=== PATIENT | male | born 1970 | race Caucasian/White ===

== ENCOUNTER 2017-07-04 16:29 | Inpatient (IN) | payer SELFPAY ==
[~2017-07-04] VITALS: Ht 180.3 cm; Wt 86.7 kg
[2017-07-04 16:34] VITALS: BP 172/97; PULSE 73; RESP 14; TEMP 97.7; O2SAT 98
[2017-07-04] MEDS ORDERED: SODIUM CHLORIDE 0.9% FLUSH 10 ML FLUSH IVF PRN (18:30)
--- NOTE | 2017-07-04 18:32 | PD ---
HPI Chief Complaint: Syncope/Near-Syncope Time Seen by Provider: 18:17 Travel History International Travel<30 days: No Contact w/Intl Traveler<30days: No Traveled to known affect area: No History of Present Illness HPI 46-year-old male here for evaluation of a near syncopal episode. The patient reports that he works as a log truck driver, and today while driving his truck he began to have visual changes and felt as though he may pass out. He reports that his vision appeared as though he was looking through prisms. This lasted for about 45 minutes and occurred at around 3:15 PM today. Patient states that the symptoms have improved, however he still feels lightheaded and is complaining of a right-sided headache. He also reports that about 3 weeks ago he began to experience a discomfort in his chest which improved, however has returned several times for the last 3 weeks. He has it today and it is mild. He has no known history of cardiac disease. There is family history of cardiac disease in his father who of an LA at the age of 70. He denies dyspnea. No fevers, chills, cough, recent illness. No paresthesias or motor deficits. [facility] Social History Tobacco Use: No Allergies-Medications (Allergen,Severity, Reaction): Coded Allergies: No Known Allergies (Unverified , 07/04/17) Reported Meds & Prescriptions Reported Meds & Active Scripts Active No Active Prescriptions or Reported Medications Review of Systems Except as stated in HPI: all other systems reviewed are Neg Physical Exam Narrative GENERAL: Well-developed, well-nourished, sitting comfortably on stretcher, no apparent distress, GCS 15. SKIN: Focused skin assessment warm/dry. No rash. HEAD: Atraumatic. Normocephalic. EYES: Pupils equal and round. No scleral icterus. No injection or drainage. ENT: Mucous membranes pink and moist. NECK: Trachea midline. No JVD. No nuchal rigidity. CARDIOVASCULAR: Regular rate and rhythm. No murmur appreciated. Distal pulses brisk and equal bilaterally. RESPIRATORY: No accessory muscle use. Clear to auscultation. Breath sounds equal bilaterally. GASTROINTESTINAL: Abdomen soft, non-tender, nondistended. MUSCULOSKELETAL: No obvious deformities. No clubbing. No cyanosis. No edema. NEUROLOGICAL: Awake and alert. No obvious cranial nerve deficits. Motor grossly within normal limits. Normal speech. PSYCHIATRIC: Appropriate mood and affect; insight and judgment normal. Data Data Last Documented VS Vital Signs Date Time Temp Pulse Resp B/P Pulse Ox O2 Delivery O2 Flow Rate FiO2 07/04/17 19:51 70 18 121/77 98 07/04/17 16:34 97.7 Orders Electrocardiogram (07/04/17 18:23) Basic Metabolic Panel (Bmp) (07/04/17 18:23) Ckmb (Isoenzyme) Profile (07/04/17 18:23) Complete Blood Count With Diff (07/04/17 18:23) Magnesium (Mg) (07/04/17 18:23) Prothrombin Time / Inr (Pt) (07/04/17 18:) Act Partial Throm Time (Ptt) (07/04/17 18:) Troponin I (07/04/17 18:) Chest, Single Ap (07/04/17 18:23) Ecg Monitoring (07/04/17 18:23) Bilateral Bp Monitoring (07/04/17 18:23) Iv Access Insert/Monitor (07/04/17 18:23) Oximetry (07/04/17 18:23) Oxygen Administration (07/04/17 18:23) Sodium Chloride 0.9% Flush (Ns Flush) (07/04/17 18:30) Ct Brain W/O Iv Contrast(Rout) (07/04/17 ) Aspirin Chew (Aspirin Chew) (07/04/17 19:15) Admit Order (Ed Use Only) (07/04/17 20:01) Activity Bed Rest With Brp (07/04/17 20:01) Vital Signs (Adult) Q4H (07/04/17 20:01) Cardiac Rhythm .As Directed (07/04/17 20:01) Notify Dr: Other .PRN (07/04/17 20:01) Notify . Parameters (07/04/17 20:01) Resp Oxygen Nasal Cannula (07/04/17 ) Ckmb (Isoenzyme) Profile (07/04/17 20:01) Ckmb (Isoenzyme) Profile (07/04/17 23:01) Troponin I (07/04/17 20:01) Troponin I (07/04/17 23:01) Electrocardiogram (07/04/17 20:01) Electrocardiogram (07/04/17 23:01) ^ Obtain (07/04/17 20:01) Sodium Chloride 0.9% Flush (Ns Flush) (07/04/17 20:15) Sodium Chloride 0.9% Flush (Ns Flush) (07/04/17 21:00) Labs Laboratory Tests Test 07/04/17 18:45 White Blood Count 6.5 TH/MM3 Red Blood Count 5.04 MIL/MM3 Hemoglobin 14.8 GM/DL Hematocrit 42.8 % Mean Corpuscular Volume 85.0 FL Mean Corpuscular Hemoglobin 29.4 PG Mean Corpuscular Hemoglobin 34.6 % Concent Red Cell Distribution Width 13.1 % Platelet Count 201 TH/MM3 Mean Platelet Volume 8.0 FL Neutrophils (%) (Auto) 71.5 % Lymphocytes (%) (Auto) 19.5 % Monocytes (%) (Auto) 6.4 % Eosinophils (%) (Auto) 1.8 % Basophils (%) (Auto) 0.8 % Neutrophils # (Auto) 4.6 TH/MM3 Lymphocytes # (Auto) 1.3 TH/MM3 Monocytes # (Auto) 0.4 TH/MM3 Eosinophils # (Auto) 0.1 TH/MM3 Basophils # (Auto) 0.1 TH/MM3 CBC Comment DIFF FINAL Differential Comment Prothrombin Time 10.6 SEC Prothromb Time International 1.0 RATIO Ratio Activated Partial 27.0 SEC Thromboplast Time Sodium Level 139 MEQ/L Potassium Level 3.9 MEQ/L Chloride Level 107 MEQ/L Carbon Dioxide Level 25.1 MEQ/L Anion Gap 7 MEQ/L Blood Urea Nitrogen 8 MG/DL Creatinine 0.94 MG/DL Estimat Glomerular Filtration 86 ML/MIN Rate Random Glucose 97 MG/DL Calcium Level 8.9 MG/DL Magnesium Level 2.1 MG/DL Total Creatine Kinase 84 U/L Troponin I LESS THAN 0.02 NG/ML MDM Medical Decision Making Medical Screen Exam Complete: Yes Emergency Medical Condition: Yes Interpretation(s) EKG: Sinus, rate 72, normal axis, normal intervals, no acute ischemic abnormality. Differential Diagnosis Syncope, dysrhythmia, intracranial abnormality, SAH/meningitis/encephalitis unlikely, metabolic abnormality, anemia, ACS, PE Narrative Course Vital signs reviewed. CBC is unremarkable. BMP is unremarkable. Cardiac enzymes are negative. Chest x-ray shows no acute disease, clear lungs. CT head: Negative noncontrast CT brain. Patient was made aware of all findings. He reports feeling improved, however complains of a slight ache in the left side of his chest. Again he has no known history of cardiac disease, however his father of an LA at the age of 70. For this reason, the patient be admitted to the chest pain center further cardiac evaluation. He is amenable to this plan. Diagnosis Primary Impression: Chest pain Qualified Code: R07.9 - Chest pain, unspecified type Additional Impression: Near syncope Admitting Information Admitting Physician Requests: Observation Scripts No Active Prescriptions or Reported Meds Brooks Florian MD Jul 04, 2017 18:32
--- NOTE | 2017-07-04 18:50 | RADRPT ---
EXAM DATE/TIME: 07/04/2017 18:39 [facility] COMPARISON: No previous studies available for comparison. INDICATIONS : Shortness of breath. MEDICAL HISTORY : None. SURGICAL HISTORY : None. ENCOUNTER: Initial ACUITY: 1 day PAIN SCORE: 3/10 LOCATION: Left upper chest FINDINGS: A single view of the chest demonstrates the lungs to be symmetrically aerated without evidence of mas s, infiltrate or effusion. The cardiomediastinal contours are unremarkable. Osseous structures are intact. CONCLUSION: The lungs are clear. Heriberto Hoskins MD on July 04, 2017 at 18:48 Board Certified Radiologist. This report was verified electronically.
[2017-07-04 19:01] LABS: AUTOMATED NEUTROPHIL # 4.6 TH/MM3 (1.8-7.7); BASOPHIL # 0.1 TH/MM3 (0-0.2); BASOPHIL % 0.8 % (0.0-2.0); EOSINOPHIL # 0.1 TH/MM3 (0-0.4); EOSINOPHIL % 1.8 % (0.0-4.0); HEMATOCRIT 42.8 % (39.0-51.0); HEMO FLAGS DIFF FINAL; LYMPH % 19.5 % (9.0-44.0); LYMPHOCYTE # 1.3 TH/MM3 (1.0-4.8); MEAN CORPUSCULAR HEMOGLOBIN 29.4 PG (27.0-34.0); MEAN CORPUSCULAR HGB CONC 34.6 % (32.0-36.0); MONO % 6.4 % (0.0-8.0); NEUT % 71.5 % (16.0-70.0); PLATELET COUNT 201 TH/MM3 (150-450); RED BLOOD COUNT 5.04 MIL/MM3 (4.50-5.90); RED CELL DISTRIBUTION WIDTH 13.1 % (11.6-17.2); WHITE BLOOD COUNT 6.5 TH/MM3 (4.0-11.0)
[2017-07-04] MEDS ORDERED: ASPIRIN 81 MG CHEW TAB PO ONE (19:15)
--- NOTE | 2017-07-04 19:15 | RADRPT ---
EXAM DATE/TIME: 07/04/2017 19:00 [facility] COMPARISON: No previous studies available for comparison. INDICATIONS : Syncopal episode with cephalgia. RADIATION DOSE: 56.35 CTDIvol (mGy) MEDICAL HISTORY : None SURGICAL HISTORY : None. ENCOUNTER: Initial ACUITY: 1 day PAIN SCALE: 6/10 LOCATION: Left cranial TECHNIQUE: Multiple contiguous axial images were obtained of the head. Using automated exposure control and adj ustment of the mA and/or kV according to patient size, radiation dose was kept as low as reasonably a chievable to obtain optimal diagnostic quality images. DICOM format image data is available electro nically for review and comparison. FINDINGS: CEREBRUM: The ventricles are normal for age. No evidence of midline shift, mass lesion, hemorrhage or acute in farction. No extra-axial fluid collections are seen. POSTERIOR FOSSA: The cerebellum and brainstem are intact. The 4th ventricle is midline. The cerebellopontine angle i s unremarkable. EXTRACRANIAL: The visualized portion of the orbits is intact. SKULL: The calvaria is intact. No evidence of skull fracture. CONCLUSION: Negative noncontrast CT brain. Heriberto Hoskins MD on July 04, 2017 at 19:13 Board Certified Radiologist. This report was verified electronically.
[2017-07-04 19:17] LABS: PROTHROMBIN TIME - PATIENT 10.6 SEC (9.8-11.6)
[2017-07-04 19:39] LABS: ANION GAP 7 MEQ/L (5-15); BICARBONATE 25.1 MEQ/L (21.0-32.0); BLOOD UREA NITROGEN 8 MG/DL (7-18); CHLORIDE 107 MEQ/L (98-107); GLOMERULAR FILTRATION RATE 86 ML/MIN (>89); MAGNESIUM 2.1 MG/DL (1.5-2.5); POTASSIUM 3.9 MEQ/L (3.5-5.1); SODIUM (NA) 139 MEQ/L (136-145)
[2017-07-04 19:44] LABS: CREATINE KINASE 84 U/L (39-308)
[2017-07-04 19:50] VITALS: RESP 16; O2SAT 98
[2017-07-04 19:51] VITALS: BP 121/77; PULSE 70; RESP 18; O2SAT 98
[2017-07-04] MEDS ORDERED: SODIUM CHLORIDE 0.9% FLUSH 10 ML FLUSH IV FLUSH PRN (20:15)
[2017-07-04] MEDS: SODIUM CHLORIDE 0.9% FLUSH 10 ML FLUSH IV FLUSH SCH (20:51)
[2017-07-04 22:18] VITALS: BP 123/77; PULSE 71; RESP 20; TEMP 97.9; O2SAT 97
[2017-07-04 23:04] LABS: CREATINE KINASE 67 U/L (39-308)
[2017-07-04 23:58] VITALS: PULSE 63
[2017-07-05] VITALS (11 sets, daily range): BP systolic 108–124; BP diastolic 65–90; PULSE 54–83; RESP 14–20; TEMP 97.7–98.3; O2SAT 95–99
[2017-07-05 01:37] LABS: CREATINE KINASE 63 U/L (39-308)
--- NOTE | 2017-07-05 08:37 | EKG ---
Date Performed: 07/04/2017 Time Performed: 22:27:16 PTAGE: 46 years EKG: SINUS BRADYCARDIA BORDERLINE ECG PREVIOUS TRACING : 07/04/2017 18.59 DOCTOR: Martin Adrian Interpretating Date/Time 07/05/2017 08:36:35
--- NOTE | 2017-07-05 08:40 | EKG ---
Date Performed: 07/04/2017 Time Performed: 18:59:26 PTAGE: 46 years EKG: Sinus rhythm NORMAL ECG NOSIGNIFICANT CHANGE PREVIOUS TRACING : 06/11/1999 13.14 DOCTOR: Martin Adrian Interpretating Date/Time 07/05/2017 08:38:10
--- NOTE | 2017-07-05 08:41 | EKG ---
Date Performed: 07/05/2017 Time Performed: 01:22:36 PTAGE: 46 years EKG: SINUS BRADYCARDIA BORDERLINE ECG NO SIGNIFICANT CHANGE PREVIOUS TRACING : 07/04/2017 22.27 DOCTOR: Martin Adrian Interpretating Date/Time 07/05/2017 08:39:48
[2017-07-05] MEDS: SODIUM CHLORIDE 0.9% FLUSH 10 ML FLUSH IV FLUSH SCH ×4 (09:00→21:00)
[2017-07-05] MEDS ORDERED: BISACODYL 10 MG SUPP RECTAL PRN (12:00)
[2017-07-05] MEDS ORDERED: LACTULOSE SYRUP 20 GM/30 ML CUP PO PRN (12:00)
[2017-07-05] MEDS ORDERED: SODIUM CHLORIDE 0.9% FLUSH 10 ML FLUSH IV FLUSH PRN ×2 (12:00→12:15)
[2017-07-05] MEDS ORDERED: NALOXONE HCL 0.4 MG/ML AMP IV PRN (12:00)
[2017-07-05] MEDS ORDERED: SENNOSIDES 8.6 MG TAB PO PRN (12:00)
[2017-07-05] MEDS ORDERED: MAGNESIUM HYDROXIDE SUSP 30 ML CUP PO PRN (12:00)
[2017-07-05] MEDS ORDERED: levETIRAcetam INJ 500 MG in SODIUM CHLORIDE 0.9% INJ 100 ML IV ONE (12:15)
[2017-07-05] MEDS ORDERED: LORazepam 2 MG/ML VIAL IV PRN (12:15)
--- NOTE | 2017-07-05 12:38 | HHI.HP ---
HPI Primary Care Physician Unknown Chief Complaint Near Syncope and Visual changes History of Present Illness Mr. Canela is a 46-year-old male with a known medical history of multiple near syncopal episodes and seizure history who presented to the ED with complaints of visual changes and chest pressure. 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 He states during that time he felt like he was going to pass out. During this episode he also noticed a sense of mid-chest pressure, rated a 3/10 on pain scale, characterized as a squeezing feeling and continued while in the ED for roughly 8 hours with no relief. Denies any aggravating or relieving factors. He admits to associated diaphoresis and dyspnea but denies any nausea and vomiting. Patient does state that a few weeks ago he began to experience this similar chest discomfort and has intermittently come and gone. Patient states that his first seizure was 20 years ago and has been seen by a neurologist at the [facility] in [facility] but has not had an extensive work up before. Denies taking any medications including antiepileptic medications. When patient seen in ED, he does admit to some chest soreness but most of the discomfort has subsided. No reproducible pain noticed by palpation. Denies any current visual changes or complaints at this time. Review of Systems Eyes: COMPLAINS OF: Change in vision HEENT: COMPLAINS OF: Lightheadedness Cardiovascular: COMPLAINS OF: Chest pain Past Family Social History Allergies: Coded Allergies: No Known Allergies (Unverified , 07/04/17) Past Medical History History of seizures Multiple near syncopal episodes Past Surgical History No surgical history. Reported Medications Reported Meds & Active Scripts Active No Active Prescriptions or Reported Medications Active Ordered Medications Current Medications Medications (Trade) Dose Ordered Sig/Zenaida Route Start Time Stop Time Status Last Admin (NS Flush) 2 ml UNSCH PRN IVF 07/04/17 18:30 (NS Flush) 2 ml UNSCH PRN IV FLUSH 07/04/17 20:15 (NS Flush) 2 ml BID IV FLUSH 07/04/17 21:00 07/04/17 20:51 Family History Paternal history significant for NV and at 71 years old. Maternal history significant for diabetes. Social History Patient denies any current tobacco use. Denies any alcohol use. Denies any illicit drug use. Physical Exam Vital Signs Vital Signs Date Time Temp Pulse Resp B/P Pulse Ox O2 Delivery O2 Flow Rate FiO2 07/05/17 09:54 118/71 122/79 123/90 07/05/17 08:03 98.3 62 14 108/65 95 07/05/17 04:08 54 07/05/17 03:40 97.7 58 20 109/71 95 07/05/17 01:17 97.8 59 18 120/74 97 07/04/17 23:58 63 07/04/17 22:18 97.9 71 20 123/77 97 07/04/17 21:10 21 07/04/17 19:51 70 18 121/77 98 07/04/17 19:50 16 98 07/04/17 16:34 97.7 73 14 172/97 98 Physical Exam GENERAL: Well-developed, well-nourished male patient, lying in bed comfortably. SKIN: Warm and dry. No rash. HEENT: Atraumatic. Normocephalic. Pupils equal and round. No scleral icterus. No injection or drainage. No nasal bleeding or discharge. Mucous membranes pink and moist. NECK: Trachea midline. No JVD. CARDIOVASCULAR: Regular rate and rhythm. No murmur appreciated. RESPIRATORY: No accessory muscle use. Clear to auscultation. Breath sounds equal bilaterally. GASTROINTESTINAL: Abdomen soft, non-tender, nondistended. Hepatic and splenic margins not palpable. MUSCULOSKELETAL: Extremities without clubbing, cyanosis, or edema. No obvious deformities. NEUROLOGICAL: Awake and alert. No obvious cranial nerve deficits. Motor grossly within normal limits. Five out of 5 muscle strength in the arms and legs. Normal speech. PSYCHIATRIC: Appropriate mood and affect; insight and judgment normal. Laboratory Laboratory Tests Test 07/04/17 07/04/17 07/05/17 18:45 22:15 00:35 White Blood Count 6.5 Red Blood Count 5.04 Hemoglobin 14.8 Hematocrit 42.8 Mean Corpuscular Volume 85.0 Mean Corpuscular Hemoglobin 29.4 Mean Corpuscular Hemoglobin 34.6 Concent Red Cell Distribution Width 13.1 Platelet Count 201 Mean Platelet Volume 8.0 Neutrophils (%) (Auto) 71.5 Lymphocytes (%) (Auto) 19.5 Monocytes (%) (Auto) 6.4 Eosinophils (%) (Auto) 1.8 Basophils (%) (Auto) 0.8 Neutrophils # (Auto) 4.6 Lymphocytes # (Auto) 1.3 Monocytes # (Auto) 0.4 Eosinophils # (Auto) 0.1 Basophils # (Auto) 0.1 CBC Comment DIFF FINAL Differential Comment Prothrombin Time 10.6 Prothromb Time International 1.0 Ratio Activated Partial 27.0 Thromboplast Time Sodium Level 139 Potassium Level 3.9 Chloride Level 107 Carbon Dioxide Level 25.1 Anion Gap 7 Blood Urea Nitrogen 8 Creatinine 0.94 Estimat Glomerular Filtration 86 Rate Random Glucose 97 Calcium Level 8.9 Magnesium Level 2.1 Total Creatine Kinase 84 67 63 Troponin I LESS THAN 0.02 LESS THAN 0.02 LESS THAN 0.02 Result Diagram: 07/04/17 1845 07/04/17 184 Imaging Last 24 hours Impressions Chest X-Ray 07/04/17 182 Signed Impressions: Service Date/Time: Tuesday, July 04, 2017 18:39 - CONCLUSION: The lungs are clear. Heriberto Hoskins MD Assessment and Plan Assessment and Plan * Atypical chest pain: Admitted to chest pain center. Serial EKGs and serial troponins ordered for ruling out purposes which are all unremarkable. CXR unremarkable. Patient seen by Dr. Adrian in the chest pain center. Lexiscan ordered to rule out any possible ischemia but this was subsequently canceled as the patient had a seizure prior to getting is resting images in nuclear medicine. His stress test will be canceled as this does not appear to be cardiac. * Near syncopal event with visual changes suspect secondary to seizure: While patient was in Nuclear medicine for Lexiscan, an evidenced seizure was witnessed. Patient seen Will admit to hospitalist service, Dr. Mims, for full seizure work up. Head CT reviewed showing no acute changes. * Seizure disorder: Patient is going to have this worked up during this admission. Patient is agreeable to this plan. Solo Raines Jul 05, 2017 12:38
[2017-07-05] MEDS: SODIUM CHLOR 0.9% 1000 ML INJ 1,000 ML IV SCH ×2 (13:13→23:49)
--- NOTE | 2017-07-05 15:07 | MB ---
cc: CLINT GUERRERO M.D. DATE OF CONSULTATION: 07/05/2017 REASON FOR CONSULTATION: Possible seizure versus TIA. HISTORY OF PRESENT ILLNESS Mr. Canela is a very pleasant 46-year man who was in his car yesterday suddenly felt like he was about to pass out, but did not quite pass out. He had some visual changes where he saw a prism in the left eye which then coalesced to visual distortion middle the field. He had some chest pain as well, arm pain as well. Following episode he had a severe left-sided throbbing headache. He does relate a history of seizures on two occasions in the past one was after he had a tooth extraction. The other one was after he gave blood, He had an episode of near-syncope several weeks ago as well. PAST MEDICAL HISTORY: History of seizures as noted above near-syncopal episodes before PAST SURGICAL HISTORY: he has no surgical history. MEDICATIONS AT HOME None. SOCIAL HISTORY Denies tobacco use or alcohol use or any drug abuse. NEUROLOGIC EXAMINATION VITAL SIGNS: Blood pressure is 118/71 supine 123/90 standing, pulse 75, respiratory rate is 14, temperature is 98 Degrees. Higher cortical functions are normal. Cranial nerves intact. Motor exam is normal with no drift. he has no focal deficits. Reflexes symmetric. Sensory exam is normal. CT of the brain is unremarkable. LABORATORY DATA The white count is 6,500, hemoglobin 14.8, hematocrit 42%, platelets are greater then 1,000. Sodium 129, potassium 3.9, chloride 107, CO2 25, the BUN is 8, creatinine 0.94, GFR is 86, glucose is 97, troponin less than 0.02. CPKs 84. His PT 10.6, INR 1, APTT 27. IMPRESSION Episodes of near-syncope with visual distortion and headache. There is a possibility this could be basilar migraine as basilar migraine can cause syncope, rule out seizure, rule out cardiogenic syncope. RECOMMENDATIONS Will get an MRI and MRA of the brain also an EEG to rule out seizure. Also monitor cardiac telemetry. Will check echocardiogram as well as carotid ultrasound, consider cardiology evaluation as well. MD JAZIEL Rushing/katheryn /1:35 PM /2:59 PM
--- NOTE | 2017-07-05 15:47 | MB ---
cc: VICTOR M DELGADO MD DATE OF CONSULTATION: 07/05/2017. REASON FOR CONSULTATION: Chest pain and near syncope. HISTORY OF PRESENT ILLNESS: The patient is a pleasant 46-year-old gentleman with known seizure disorder who presented to the emergency department with vague chest pain and near syncopal episodes but had a seizure after the radiotracer was injected for his nuclear stress test. Following the seizure, he was transferred out of the chest pain center and it was felt that his presentation was likely noncardiac in origin. I was asked to see the patient to evaluate his chest pain however and he says that three weeks ago he had a severe episode of chest pressure and then a more mild one yesterday but those were the only two episodes. As detailed previously, he had multiple near syncopal episodes though it had been felt that these are likely neurological related given his witnessed seizure here. PAST MEDICAL HISTORY: Seizures. CURRENT MEDICATIONS: 1. . 2. Ativan. ALLERGIES: NO KNOWN DRUG ALLERGIES. PHYSICAL EXAMINATION: VITAL SIGNS: Afebrile, pulse 69, blood pressure 118/71, satting 99% on two liters. GENERAL: A pleasant gentleman in no distress. NECK: No jugular venous distention. LUNGS: Clear to auscultation bilaterally. CARDIOVASCULAR: Regular rate and rhythm. No murmurs appreciated. ABDOMEN: Benign. EXTREMITIES: No edema. LABORATORY DATA: White count is 6.5, hematocrit 42.8, platelet count 201,000. Sodium 139, potassium 3.9, chloride 107, bicarbonate 25.1, BUN 8, creatinine 0.94. Cardiac enzymes are negative x3. EKGS: EKG shows sinus rhythm with no acute S-T or T wave changes. IMPRESSION: 1. Chest pain. The patient's chest pain had somewhat typical features in that it was pressure in quality though occurred while at rest. I will have him undergo a nuclear stress test. He is also undergoing an echocardiogram and carotid Dopplers and is being watched on telemetry. However, since he has known seizures, I think it is more likely he is having neurological symptoms as opposed to a cardiovascular presyncopal episodes. Further recommendations will be based on his testing. Thank you again for the opportunity to participate in this patient's care. MD STEVEN Barragan/LAINA /3:30 PM /3:36 PM
--- NOTE | 2017-07-05 16:20 | RADRPT ---
EXAM DATE/TIME: 07/05/2017 15:18 [facility] COMPARISON: No previous studies available for comparison. INDICATIONS : Syncope. MEDICAL HISTORY : Seizures. Syncope. SURGICAL HISTORY : None. ENCOUNTER: Initial ACUITY: 2 days PAIN SCORE: 0/10 LOCATION: Bilateral neck PEAK SYSTOLIC VELOCITIES (cm/sec): ICA/CCA RATIO: Right: 0.7 Left: 0.7 ICA: Right: 80.6 Left: 72.5 CCA: Right: 108.2 Left: 109.0 ECA: Right: 66.1 Left: 69.3 VERTEBRAL: Right: 43.5 antegrade Left: 54.8 antegrade Elevated flow velocities and ICA/CCA ratios have been found to correlate with increased degrees of vessel stenosis, calculated as percentage of diameter relative to a normal segment of distal ICA/CCA FINDINGS: RIGHT CAROTID: No significant stenosis is visualized. The waveforms are within normal limits. LEFT CAROTID: No significant stenosis is visualized. The waveforms are within normal limits. VERTEBRAL ARTERIES: Antegrade flow is seen in both vertebral arteries. MISCELLANEOUS: None. CONCLUSION: Normal examination. Daren Moreno MD on July 05, 2017 at 16:17 Board Certified Radiologist. This report was verified electronically.
[2017-07-05] MEDS ORDERED: GADODIAMIDE PF 287 MG/ML 20 ML VIAL (for RAD MRI) IV ONE (19:30)
--- NOTE | 2017-07-05 19:51 | RADRPT ---
EXAM DATE/TIME: 07/05/2017 19:22 [facility] COMPARISON: No previous studies available for comparison. INDICATIONS : Syncope vs. seizures. CONTRAST: 20 cc Omniscan (gadodiamide) IV MEDICAL HISTORY : Seizures. SURGICAL HISTORY : None. ENCOUNTER: Initial ACUITY: 2 day PAIN SCORE: 0/10 LOCATION: cranial TECHNIQUE: Multiplanar, multisequence MRI of the brain was performed both prior to and following the administrat ion of paramagnetic contrast. FINDINGS: CEREBRUM: The ventricles are normal for age. No evidence of midline shift, mass lesion, hemorrhage or acute in farction. No extraaxial fluid collections are seen. The pituitary gland and suprasellar cistern are normal in configuration. WHITE MATTER: No significant signal abnormalities are seen in the white matter. POSTERIOR FOSSA: The cerebellum and brainstem are intact. The 4th ventricle is midline. The cerebellopontine angle is unremarkable. The cerebellar tonsils are normal in position. DIFFUSION IMAGING: No focal areas of restricted diffusion are seen. No evidence of acute infarction. EXTRACRANIAL: The visualized portions of the orbits and paranasal sinuses are unremarkable. POST-CONTRAST: No abnormal areas of parenchymal or dural enhancement. No evidence of blood-brain barrier breakdown. CONCLUSION: Normal examination for a patient of this age. Daren Moreno MD on July 05, 2017 at 19:47 Board Certified Radiologist. This report was verified electronically.
[2017-07-05] MEDS: DOCUSATE SODIUM 50 MG/SENNA 8.6 MG TAB PO SCH (21:00)
[2017-07-05] MEDS: levETIRAcetam INJ 500 MG in SODIUM CHLORIDE 0.9% INJ 100 ML IV SCH (23:50)
[2017-07-06] VITALS (7 sets, daily range): BP systolic 104–167; BP diastolic 61–95; PULSE 59–74; RESP 16–20; TEMP 97.6–98; O2SAT 95–99
[2017-07-06] MEDS: SODIUM CHLORIDE 0.9% FLUSH 10 ML FLUSH IV FLUSH SCH ×4 (09:00→21:00)
[2017-07-06] MEDS: DOCUSATE SODIUM 50 MG/SENNA 8.6 MG TAB PO SCH ×2 (09:00→21:00)
[2017-07-06] MEDS ORDERED: REGADENOSON INJ 0.4 MG/5 ML SYR ONE (10:00)
--- NOTE | 2017-07-06 11:26 | RADRPT ---
EXAM DATE/TIME: 07/06/2017 09:03 [facility] COMPARISON: No previous studies available for comparison. INDICATIONS : Syncopal episode. Mild chest pain for 3 weeks. Angina. DOSE: 35 mCi Tc99m Myoview at stress. 10.9 mCi Tc99m Myoview at rest. 0.4 mg Lexiscan STRESS SYMPTOMS: Dyspnea, lightheadedness, chest pressure and tingling. EJECTION FRACTION: 61% MEDICAL HISTORY : None SURGICAL HISTORY : None. ENCOUNTER: Initial ACUITY: 3 weeks PAIN SCALE: 3/10 LOCATION: Substernal chest TECHNIQUE: The patient underwent pharmacologic stress with infusion of prescribed dose. Continuous ECG tracing was monitored during stress. Gated SPECT imaging was performed after stress and conventional SPECT i maging was performed at rest. The examination was performed on a SPECT/CT scanner, both attenuation and non-corrected datasets were reviewed. FINDINGS: DISTRIBUTION: The maximum perfused segment at stress is in the anterolateral wall. PERFUSION STUDY: The pattern of perfusion at stress is within normal limits. GATED STUDY: There is intact wall motion and thickening without hypokinetic or dyskinetic segments. CONCLUSION: 1. Left ventricle perfusion is within normal limits. No fixed or reversible perfusion defect is ident ified. 2. Normal left ventricle wall motion and ejection fraction. RISK CATEGORY: Low (<1% Annual Mortality Rate) Rober Vasquez MD on July 06, 2017 at 11:23 Board Certified Radiologist. This report was verified electronically.
[2017-07-06] MEDS: levETIRAcetam INJ 500 MG in SODIUM CHLORIDE 0.9% INJ 100 ML IV SCH (11:39)
[2017-07-06] MEDS ORDERED: ACETAMIN 325 MG/BUTALBITAL 50 MG/CAFFEINE 40 MG TAB PO ONE (12:30)
--- NOTE | 2017-07-06 13:58 | HHI.PR ---
Subjective Remarks Patient is continuing to gradually feel better. He is not yet at baseline and still feels a little bit dizzy at times when he moves, but is feeling better than he has the past 3 days. Thus far we have an MRI and carotid ultrasound which are normal. Other tests including an echocardiogram, MRA, EEG, and nuclear stress test are pending. No further episodes of visual changes or seizure-like activity. Objective Vital Signs Date Time Temp Pulse Resp B/P Pulse Ox O2 Delivery O2 Flow Rate FiO2 07/06/17 12:00 97.9 62 20 125/70 96 07/06/17 08:00 97.8 59 20 167/70 96 07/06/17 08:00 74 07/06/17 04:00 97.9 62 18 111/63 95 07/06/17 00:00 97.6 66 16 104/61 99 07/05/17 20:00 97.9 64 18 124/70 97 07/05/17 18:02 97.9 72 20 119/75 95 07/05/17 18:00 83 07/05/17 15:58 67 I/O 07/05/17 07/05/17 07/05/17 07/06/17 07/06/17 07/06/17 07:00 15:00 23:00 07:00 15:00 23:00 Intake Total 1440 ml Balance 1440 ml Intake Oral 240 ml IV Total 1200 ml # Voids 1 1 1 2 # Bowel Movements 0 Result Diagram: 07/04/17 1845 07/04/17 1845 Objective Remarks GENERAL: NAD, A&Ox3 HEAD: Normocephalic. NECK: Supple, trachea midline. No lymphadenopathy. EYES: No scleral icterus. No injection or drainage. CARDIOVASCULAR: Regular rate and rhythm without murmurs, gallops, or rubs. RESPIRATORY: Breath sounds equal bilaterally. No accessory muscle use. GASTROINTESTINAL: Abdomen soft, non-tender, nondistended. MUSCULOSKELETAL: No cyanosis, or edema. SKIN: Warm and dry. NEURO: No focal neurological deficitis. A/P Problem List: (1) Near syncope ICD Code: R55 (2) Chest pain ICD Code: R07.9 (3) Seizure ICD Code: R56.9 Assessment and Plan Assessment and plan 46-year-old male admitted for syncopal episodes which appear to may have been partial seizure episodes. Patient witnessed to have seizure while at stress test yesterday. Workup has been broadened and will include cardiac and neurologic workup. Seizure Syncope EEG pending Echocardiogram, MRA are pending MRI is negative Carotid ultrasound is negative Neurology following Follow on telemetry Chest pain Negative workup thus far Stress test pending Cardiology following Monitor on telemetry DVT prophylaxis Lovenox Problem Qualifiers (1) Chest pain: Qualified Code: R07.9 - Chest pain, unspecified type Hasmukh Mims MD Jul 06, 2017 13:58
--- NOTE | 2017-07-06 14:13 | MG ---
cc: CLINT GUERRERO M.D. Lab No: [id number] Date: 07/05/2017 Age: Sex: M Race: TECHNIQUE: 17 channel EEG. DESCRIPTION: The background rhythm reveals symmetrical alpha rhythm frequency 8-10 Hz. Amplitude is 20 microvolts. There is occasional muscle artifact present. No lateralizing features are identified and no epileptic features are seen. Hyperventilation does not alter the background rhythm. Photic results in a normal driving response. INTERPRETATION: Normal EEG. MD JAZIEL Rushing/LAINA /2:02 PM /2:09 PM
[2017-07-07] VITALS (8 sets, daily range): BP systolic 114–142; BP diastolic 58–78; PULSE 56–69; RESP 16–20; TEMP 97.3–97.7; O2SAT 96–97
[2017-07-07] MEDS: levETIRAcetam INJ 500 MG in SODIUM CHLORIDE 0.9% INJ 100 ML IV SCH ×2 (00:42→11:38)
[2017-07-07] MEDS: SODIUM CHLOR 0.9% 1000 ML INJ 1,000 ML IV SCH ×2 (04:21→13:34)
[2017-07-07] MEDS: SODIUM CHLORIDE 0.9% FLUSH 10 ML FLUSH IV FLUSH SCH (09:00)
[2017-07-07] MEDS: DOCUSATE SODIUM 50 MG/SENNA 8.6 MG TAB PO SCH (09:00)
--- NOTE | 2017-07-07 09:13 | ECHRPT ---
Indication: SYNCOPE CONCLUSIONS Normal left ventricular size. Wall thickness is normal. The left ventricular systolic function is grossly normal on limited imaging, LVEF 60-65%. No regional wall motion abnormalities are present. There is trace tricuspid valve regurgitation. Normal estimated pulmonary pressures. The pulmonary valve is not well visualized. BP: 125 / 70 HR: 62 Rhythm: Sinus MEASUREMENTS (Male / Female) Normal Values Technical Quality:Good 2D ECHO LV Diastolic Diameter PLAX 5.0 cm 4.2 - 5.9 / 3.9 - 5.3 cm LV Systolic Diameter PLAX 3.3 cm IVS Diastolic Thickness 0.9 cm 0.6 - 1.0 / 0.6 - 0.9 cm LVPW Diastolic Thickness 0.9 cm 0.6 - 1.0 / 0.6 - 0.9 cm LV Relative Wall Thickness 0.4 LVOT Diameter 2.0 cm Aortic Root Diameter 3.1 cm LA Systolic Diameter LX 3.4 cm 3.0 - 4.0 / 2.7 - 3.8 cm M-MODE AV Cusp Separation MM 2.1 cm DOPPLER AV Peak Velocity 119.0 cm/s AV Peak Gradient 5.7 mmHg AV Mean Gradient 3.0 mmHg AV Velocity Time Integral 24.5 cm LVOT Peak Velocity 103.0 cm/s LVOT Peak Gradient 4.2 mmHg LVOT Velocity Time Integral 18.2 cm LVOT Cardiac Index 1700.9 cm/minm AV Area Cont Eq vti 2.3 cm AV Area Cont Eq pk 2.7 cm Mitral E Point Velocity 101.0 cm/s Mitral A Point Velocity 69.6 cm/s Mitral E to A Ratio 1.5 LV E' Lateral Velocity 13.1 cm/s Mitral E to LV E' Lateral Ratio 7.7 LV E' Septal Velocity 10.2 cm/s Mitral E to LV E' Septal Ratio 9.9 TR Peak Velocity 258.0 cm/s TR Peak Gradient 26.6 mmHg PV Peak Velocity 75.2 cm/s PV Peak Gradient 2.3 mmHg FINDINGS LEFT VENTRICLE Normal left ventricular size. Wall thickness is normal. The left ventricular systolic function is grossly normal on limited imaging. No regional wall motion abnormalities are present. Left ventricular diastolic function parameters are normal. RIGHT VENTRICLE Normal right ventricular size and systolic function. LEFT ATRIUM The left atrial size is normal. RIGHT ATRIUM The right atrial size is normal. ATRIAL SEPTUM Normal atrial septal thickness without atrial level shunting by limited color doppler interrogation. AORTA The aortic root and proximal ascending aorta are normal in size on limited imaging. MITRAL VALVE Structurally normal mitral valve. No mitral valve stenosis or regurgitation. AORTIC VALVE Trileaflet aortic valve. No aortic valve stenosis or regurgitation. TRICUSPID VALVE Structurally normal tricuspid valve. There is trace tricuspid valve regurgitation. Normal estimated pulmonary pressures. PULMONARY VALVE The pulmonary valve is not well visualized. VESSELS The inferior vena cava is normal in size. PERICARDIUM No pericardial effusion. Lobo Cotto MD (Electronically Signed) Final Date:07 July 2017 09:12
--- NOTE | 2017-07-07 15:29 | HHI.PR ---
Subjective Remarks MRI, carotid ultrasound, normal stress test, EEG, telemetry monitoring, and echo have been negative. Patient is feeling near baseline at this point. He will discharged soon once treatment plan is established for antiepileptics if this is indicated per neurology. Objective Vital Signs Date Time Temp Pulse Resp B/P Pulse Ox O2 Delivery O2 Flow Rate FiO2 07/07/17 12:00 97.7 56 20 121/70 97 07/07/17 08:45 Room Air 07/07/17 08:09 56 07/07/17 08:00 97.7 66 20 142/78 97 07/07/17 07:45 96 21 07/07/17 04:00 97.3 64 16 118/58 97 07/07/17 00:00 97.7 69 18 124/70 97 07/06/17 21:00 61 07/06/17 18:44 98.0 68 20 130/63 98 07/06/17 16:00 97.6 59 20 123/95 98 I/O 07/06/17 07/06/17 07/06/17 07/07/17 07/07/17 07/07/17 07:00 15:00 23:00 07:00 15:00 23:00 Intake Total 1440 ml 240 ml 1277 ml 905 ml Balance 1440 ml 240 ml 1277 ml 905 ml Intake Oral 240 ml 240 ml 240 ml IV Total 1200 ml 1037 ml 905 ml # Voids 1 2 2 3 2 # Bowel Movements 0 0 0 1 Result Diagram: 07/04/17184407/04/171844 Objective Remarks GENERAL: NAD, A&Ox3 HEAD: Normocephalic. NECK: Supple, trachea midline. No lymphadenopathy. EYES: No scleral icterus. No injection or drainage. CARDIOVASCULAR: Regular rate and rhythm without murmurs, gallops, or rubs. RESPIRATORY: Breath sounds equal bilaterally. No accessory muscle use. GASTROINTESTINAL: Abdomen soft, non-tender, nondistended. MUSCULOSKELETAL: No cyanosis, or edema. SKIN: Warm and dry. NEURO: No focal neurological deficitis. A/P Problem List: (1) Near syncope ICD Code: R55 (2) Chest pain ICD Code: R07.9 (3) Seizure ICD Code: R56.9 Assessment and Plan Assessment and plan 46-year-old male admitted for syncopal episodes which appear to may have been partial seizure episodes. Negative workup. Plan for discharge today or tomorrow after treatment plan selected for patient via neurology. Seizure Syncope EEG pending Echocardiogram, MRA are pending MRI is negative Carotid ultrasound is negative Neurology following Follow on telemetry Chest pain Negative workup thus far Stress test pending Cardiology following Monitor on telemetry DVT prophylaxis Lovenox Discharge planning Plan for discharge today or tomorrow after treatment plan selected for patient via neurology. Problem Qualifiers (1) Chest pain: Qualified Code: R07.9 - Chest pain, unspecified type Hasmukh Mims MD Jul 07, 2017 15:29
--- NOTE | 2017-07-07 15:34 | HHI.DS ---
Discharge Summary Admission Date Jul 05, 2017 at 12:01 Discharge Date: Jul 07, 2017 Admitting Diagnosis chest pain, near-syncope (1) Seizure ICD Code: R56.9 Diagnosis: Principal Procedures EEG Brief History - From Admission Patient admitted with seizure after he was obtaining a workup for syncope and chest pain and had a seizure. CBC/BMP: 07/04/17 1845 07/04/17 1845 Significant Findings Laboratory Tests Test 07/04/17 07/04/17 07/05/17 18:45 22:15 00:35 Neutrophils (%) (Auto) 71.5 % (16.0-70.0) Estimat Glomerular Filtration 86 ML/MIN (>89) Rate Troponin I LESS THAN 0.02 LESS THAN 0.02 LESS THAN 0.02 NG/ML NG/ML NG/ML (0.02-0.05) (0.02-0.05) (0.02-0.05) Hospital Course Mr. Canela is a 46-year-old male. He came into the hospital after losing orientation driving. He's had episodes like this before as far back as 25 years and can think of greater than 10 times this is happening in his life. Recently it has been happening more frequently. 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 A coworker picked him up and to come to our hospital. She did report some chest pain when he came in but it was very atypical and during his chest pain workup when obtaining a nuclear stress test he had a witnessed seizure. At that point he was converted to my service and had an extensive workup which included a repeat nuclear stress tests, EKG, telemetry monitoring, echocardiogram, cardiac ultrasound, and MRI. All his testing was negative. Neurology has been following. Case discussed with neurology. They recommend 500 mg a Repeat O twice a day at time of discharge. Patient medically clear for discharge today. Pt Condition on Discharge: Stable Discharge Disposition: Discharge Home Discharge Time: <= 30 minutes Discharge Instructions Follow up Referrals: Neurology - 2 Weeks with Zeke Rayo PhD MD PCP Follow-up - 2 Weeks New Medications: Levetiracetam (Levetiracetam) 500 Mg Tab 500 MG PO BID Control Seizures #60 Ref 0 TAB Hasmukh Mims MD Jul 07, 2017 15:34
[2017-07-07] MEDS ORDERED: LEVE500T8 PO (17:56)
== END 2017-07-07 18:45 | disposition home or self-care (01) | DRG 101 ==
LOC: NEPD 16:29 → NEDA 20:02 → NEPFCDU 22:02 → OBSVTOIN 07-05 12:01 → UNDODISIN 07-05 17:24 → N04B 07-05 17:53
PROVIDERS: ADMIT Hospitalist; ATTEND Hospitalist
DX: G40.109 Localization-related (focal) (partial) symptomatic epilepsy and epileptic syndromes with simple partial seizures, not intractable, without status epilepticus (principal); R07.89 Other chest pain; G40.909 Epilepsy, unspecified, not intractable, without status epilepticus; Z82.49 Family history of ischemic heart disease and other diseases of the circulatory system
CPT/HCPCS: 70450; 70553; 71010; 78452; 80048; 82550; 83735; 84484; 85025; 85610; 85730; 93005; 93017; 93306; 93880; 95819; A9502; A9579; G0378; J1953; J2785; J7030